=== PATIENT | female | born 1985 | race African-American/Black ===

== ENCOUNTER 2016-08-24 10:27 | Emergency (ER) | payer MEDICAID ==
[~2016-08-24] VITALS: Ht 165.1 cm; Wt 139.0 kg
[2016-08-24 10:38] VITALS: BP 147/99
== END 2016-08-24 13:27 | disposition home or self-care (01) ==
LOC: ER 12:47
DX: M54.31 Sciatica, right side (principal); R20.0 Anesthesia of skin; Z90.49 Acquired absence of other specified parts of digestive tract
CPT/HCPCS: 99281

== ENCOUNTER 2016-10-06 20:07 | Emergency (ER) | payer SELFPAY ==
[~2016-10-06] VITALS: Ht 165.1 cm; Wt 131.0 kg
[2016-10-06] MEDS ORDERED: IBUPROFEN 800MG TABLET PO ONE (22:15)
[2016-10-06 22:30] LABS: BASOPHILS % 0.8 % (0.0-2.0); EOSINOPHILS % 0.5 % (0.0-5.0); HEMATOCRIT. 35.9 % (36.0-48.0); HEMOGLOBIN. 11.3 g/dL (12.0-16.0); MEAN CORPUSCULAR VOLUME 72.7 fL (81.0-99.0); MEAN PLATELET VOLUME 8.7 fl (7.4-10.4); MONOCYTES % 8.4 % (2.0-8.0); NEUTROPHILS % 68.3 % (40.0-76.0); PLATELET 358 x1000/uL (130-400); RED BLOOD CELL COUNT 4.93 mill/uL (4.2-5.4); RED CELL DISTRIBUTION WIDTH 15.7 % (11.6-14.6)
[2016-10-06 22:32] LABS: CHLORIDE 105 mEq/L (98-107)
[2016-10-06 22:37] LABS: CARBON DIOXIDE 28 mEq/L (21-32)
[2016-10-06 22:44] LABS: TROPONIN I < 0.02 ng/mL (0.00-0.04)
[2016-10-07 00:56] VITALS: BP 127/68
== END 2016-10-07 00:57 | disposition home or self-care (01) ==
LOC: ER 20:07
DX: M94.0 Chondrocostal junction syndrome [Tietze] (principal); F41.9 Anxiety disorder, unspecified; K21.9 Gastro-esophageal reflux disease without esophagitis; Z90.49 Acquired absence of other specified parts of digestive tract
CPT/HCPCS: 36415; 71010; 80053; 81025; 84484; 85025; 93005; 99285

== ENCOUNTER 2017-01-29 13:17 | Emergency (ER) | payer MEDICAID ==
[~2017-01-29] VITALS: Ht 165.1 cm; Wt 134.0 kg
[2017-01-29] MEDS ORDERED: VISCOUS LIDOCAINE 2% 15 ML UDC PO STA (18:33)
[2017-01-29] MEDS ORDERED: ONDANSETRON 4MG ODT PO STA (18:33)
[2017-01-29] MEDS ORDERED: MAGNESIUM/ALUMINUM HYDROXIDE/SIMETHICONE 30ML UDC PO STA (18:33)
[2017-01-29 19:04] LABS: BASOPHILS % 1.2 % (0.0-2.0); EOSINOPHILS % 1.8 % (0.0-5.0); HEMOGLOBIN. 10.4 g/dL (12.0-16.0); LYMPHOCYTES % 30.3 % (20.0-50.0); MEAN CORPUSCULAR HEMOGLOBIN 23.2 pg (28.0-32.0); MEAN CORPUSCULAR VOLUME 73.3 fL (81.0-99.0); MEAN PLATELET VOLUME 8.5 fl (7.4-10.4); MONOCYTES % 9.3 % (2.0-8.0); NEUTROPHILS % 57.4 % (40.0-76.0); PLATELET 350 x1000/uL (130-400); RED BLOOD CELL COUNT 4.51 mill/uL (4.2-5.4); RED CELL DISTRIBUTION WIDTH 15.8 % (11.6-14.6)
[2017-01-29 19:11] LABS: CHLORIDE 105 mEq/L (98-107)
[2017-01-29 19:14] LABS: CARBON DIOXIDE 28 mEq/L (21-32)
[2017-01-29 21:59] VITALS: BP 133/70
== END 2017-01-29 22:01 | disposition home or self-care (01) ==
LOC: ER 14:18
DX: K21.0 Gastro-esophageal reflux disease with esophagitis (principal); K29.70 Gastritis, unspecified, without bleeding; F41.9 Anxiety disorder, unspecified; Z90.49 Acquired absence of other specified parts of digestive tract
CPT/HCPCS: 36415; 80053; 81025; 83690; 85025; 99284; Q0162

== ENCOUNTER 2017-03-14 13:02 | Inpatient (IN) | payer MEDICAID ==
[~2017-03-14] VITALS: Ht 165.1 cm; Wt 136.1 kg
[2017-03-14] MEDS ORDERED: ASPIRIN 81MG TABLET PO ONE (13:45)
[2017-03-14 14:00] LABS: BASOPHILS % 0.8 % (0.0-2.0); EOSINOPHILS % 0.7 % (0.0-5.0); HEMATOCRIT. 34.8 % (36.0-48.0); HEMOGLOBIN. 11.1 g/dL (12.0-16.0); LYMPHOCYTES % 21.1 % (20.0-50.0); MEAN CORPUSCULAR HEMOGLOBIN 23.1 pg (28.0-32.0); MEAN CORPUSCULAR VOLUME 72.4 fL (81.0-99.0); MEAN PLATELET VOLUME 8.5 fl (7.4-10.4); NEUTROPHILS % 69.4 % (40.0-76.0); PLATELET 351 x1000/uL (130-400)
[2017-03-14 14:09] LABS: PARTIAL THROMBOPLASTIN TIME 26.6 sec (23.4-31.0); PROTHROMBIN TIME 10.8 sec (9.4-11.6)
[2017-03-14 14:16] LABS: CARBON DIOXIDE 26 mEq/L (21-32); CHLORIDE 104 mEq/L (98-107); TROPONIN I < 0.02 ng/mL (0.00-0.04)
[2017-03-14 14:28] LABS: CLARITY URINE CLEAR (CLEAR); COLOR URINE YELLOW (YELLOW); GLUCOSE URINE NEGATIVE (NEGATIVE); KETONES URINE NEGATIVE (NEGATIVE); LEUKOCYTE ESTERASE URINE NEGATIVE (NEGATIVE); NITRITE URINE NEGATIVE (NEGATIVE); OCCULT BLOOD URINE 2+ (NEGATIVE); PH URINE 5.5 (4.5-8.0); PROTEIN URINE NEGATIVE (NEGATIVE); SPECIFIC GRAVITY URINE 1.028 (1.005-1.030); UROBILINOGEN URINE 0.2 E.U./dL (0.2-1.0)
[2017-03-14 14:58] LABS: *AMPHETAMINES SCREEN URINE NEGATIVE (NEGATIVE); *BARBITURATES SCREEN URINE NEGATIVE (NEGATIVE); *BENZODIAZEPINES SCREEN URINE NEGATIVE (NEGATIVE); *COCAINE SCREEN URINE NEGATIVE (NEGATIVE); CANNABINOID URINE SCREEN NEGATIVE (NEGATIVE); METHADONE URINE SCREEN NEGATIVE (NEGATIVE); OPIATES URINE SCREEN NEGATIVE (NEGATIVE); PHENCYCLIDINE URINE SCREEN NEGATIVE (NEGATIVE)
[2017-03-14 22:33] VITALS: BP 132/66
[2017-03-14] MEDS ORDERED: IPRATROPIUM/ALBUTEROL 0.5-3(2.5)MG/3ML NEB INH PRN (22:45)
[2017-03-14] MEDS ORDERED: CLONIDINE 0.1MG TABLET PO PRN (22:45)
[2017-03-14] MEDS ORDERED: DOCUSATE SODIUM 100MG CAPSULE PO PRN (22:45)
[2017-03-14] MEDS ORDERED: MAGNESIUM/ALUMINUM HYDROXIDE/SIMETHICONE 30ML UDC PO PRN (22:45)
[2017-03-14] MEDS ORDERED: ONDANSETRON HCL 4MG/2ML VIAL IV PRN (22:45)
[2017-03-14] MEDS ORDERED: ENOXAPARIN 40MG/0.4ML SYR SUBCUT SCH (22:45)
[2017-03-14] MEDS ORDERED: HYDROCODONE/ACETAMINOPHEN 5/325MG TABLET PO PRN (22:45)
[2017-03-14] MEDS ORDERED: FERR325T6 PO (23:10)
[2017-03-14] MEDS: ACETAMINOPHEN 325MG TABLET PO PRN (23:31)
[2017-03-15 00:22] LABS: CARBON DIOXIDE 26 mEq/L (21-32); CHLORIDE 106 mEq/L (98-107)
[2017-03-15 04:00] VITALS: BP 105/56
[2017-03-15] MEDS: ACETAMINOPHEN 325MG TABLET PO PRN (06:50)
[2017-03-15 07:55] LABS: CREATINE KINASE 155 IU/L (26-192); CREATINE KINASE MB FRACTION 1.4 ng/mL (0.5-3.6); HDL CHOLESTEROL 37 mg/dL (40-59); LDL CHOLESTEROL 96 mg/dL (5-100); TROPONIN I < 0.02 ng/mL (0.00-0.04)
[2017-03-15 08:00] VITALS: BP 107/52
[2017-03-15] MEDS: OMEPRAZOLE 20MG CAPSULE EXTENDED RELEASE PO SCH (08:07)
[2017-03-15] MEDS: ENOXAPARIN 40MG/0.4ML SYR SUBCUT SCH ×2 (08:08→20:06)
[2017-03-15] MEDS: ASPIRIN 81MG EC TABLET PO SCH (08:08)
[2017-03-15] MEDS ORDERED: POTASSIUM CHLORIDE 20MEQ TABLET SR PO NR (11:45)
[2017-03-15 12:00] VITALS: BP 99/50
[2017-03-15 14:58] LABS: UCG SCREEN NEGATIVE
[2017-03-15 16:00] VITALS: BP 111/52
[2017-03-15 17:26] LABS: CREATINE KINASE 148 IU/L (26-192); TOTAL IRON BINDING CAPACITY 342 ug/dL (250-450); TROPONIN I < 0.02 ng/mL (0.00-0.04)
[2017-03-15 20:00] VITALS: BP 120/80
[2017-03-16] VITALS: BP 105/46
[2017-03-16 04:00] VITALS: BP 107/68
[2017-03-16 08:00] VITALS: BP 107/69
[2017-03-16] MEDS: ENOXAPARIN 40MG/0.4ML SYR SUBCUT SCH ×2 (08:46→21:00)
[2017-03-16] MEDS: ASPIRIN 81MG EC TABLET PO SCH (08:46)
[2017-03-16] MEDS: OMEPRAZOLE 20MG CAPSULE EXTENDED RELEASE PO SCH (08:46)
[2017-03-16] MEDS ORDERED: POTASSIUM CHLORIDE 20MEQ TABLET SR PO SCH (11:15)
[2017-03-16 12:00] VITALS: BP 105/62
[2017-03-16 16:00] VITALS: BP 112/52
[2017-03-16 20:00] VITALS: BP 127/63
[2017-03-17] VITALS: BP 112/68
[2017-03-17 04:00] VITALS: BP 111/63
[2017-03-17 06:06] LABS: BASOPHILS % 1.2 % (0.0-2.0); EOSINOPHILS % 1.6 % (0.0-5.0); HEMOGLOBIN. 10.8 g/dL (12.0-16.0); LYMPHOCYTES % 24.1 % (20.0-50.0); MEAN CORPUSCULAR VOLUME 72.2 fL (81.0-99.0); MEAN PLATELET VOLUME 9.4 fl (7.4-10.4); MONOCYTES % 9.5 % (2.0-8.0); NEUTROPHILS % 63.6 % (40.0-76.0); PLATELET 300 x1000/uL (130-400); RED BLOOD CELL COUNT 4.71 mill/uL (4.2-5.4); RED CELL DISTRIBUTION WIDTH 16.5 % (11.6-14.6)
[2017-03-17 06:26] LABS: CHLORIDE 104 mEq/L (98-107)
[2017-03-17 06:44] LABS: CARBON DIOXIDE 26 mEq/L (21-32)
[2017-03-17 08:00] VITALS: BP 127/64
[2017-03-17] MEDS: ASPIRIN 81MG EC TABLET PO SCH (08:17)
[2017-03-17] MEDS: OMEPRAZOLE 20MG CAPSULE EXTENDED RELEASE PO SCH (08:17)
[2017-03-17] MEDS: ENOXAPARIN 40MG/0.4ML SYR SUBCUT SCH ×2 (08:18→20:11)
[2017-03-17 12:00] VITALS: BP 127/74
[2017-03-17 16:00] VITALS: BP 122/63
[2017-03-17] MEDS ORDERED: REGADENOSON 0.4 MG/5 ML IV NR (16:00)
[2017-03-17 20:00] VITALS: BP 112/59
[2017-03-17] MEDS: LORAZEPAM 0.5MG TABLET PO PRN (20:11)
[2017-03-18] VITALS: BP 100/56
[2017-03-18 04:00] VITALS: BP 109/57
[2017-03-18 07:25] LABS: BASOPHILS % 0.6 % (0.0-2.0); EOSINOPHILS % 0.6 % (0.0-5.0); HEMATOCRIT. 34.4 % (36.0-48.0); HEMOGLOBIN. 11.1 g/dL (12.0-16.0); LYMPHOCYTES % 20.2 % (20.0-50.0); MEAN CORPUSCULAR HEMOGLOBIN 23.2 pg (28.0-32.0); MEAN PLATELET VOLUME 9.4 fl (7.4-10.4); MONOCYTES % 8.4 % (2.0-8.0); NEUTROPHILS % 70.2 % (40.0-76.0); PLATELET 337 x1000/uL (130-400); RED BLOOD CELL COUNT 4.78 mill/uL (4.2-5.4); RED CELL DISTRIBUTION WIDTH 16.5 % (11.6-14.6)
[2017-03-18 08:00] VITALS: BP 132/77
[2017-03-18] MEDS: ASPIRIN 81MG EC TABLET PO SCH (08:06)
[2017-03-18] MEDS: OMEPRAZOLE 20MG CAPSULE EXTENDED RELEASE PO SCH (08:06)
[2017-03-18] MEDS: ENOXAPARIN 40MG/0.4ML SYR SUBCUT SCH (08:07)
[2017-03-18] MEDS ORDERED: REGADENOSON 0.4 MG/5 ML IV ONE (08:39)
[2017-03-18 08:43] LABS: CARBON DIOXIDE 27 mEq/L (21-32); CHLORIDE 103 mEq/L (98-107)
[2017-03-18] MEDS: LORAZEPAM 0.5MG TABLET PO PRN (10:24)
[2017-03-18 11:33] VITALS: BP 117/59
[2017-03-18] MEDS ORDERED: ALPR0.25 PO (12:07)
[2017-03-18] MEDS ORDERED: OMEP20CA10 PO (12:07)
[2017-03-18 13:17] VITALS: BP 117/59
== END 2017-03-18 15:20 | disposition home or self-care (01) | DRG 756 ==
LOC: ER 13:20 → 7WST 20:48 → EDBEDREQ 21:02 → ENRESERV 21:07
PROVIDERS: ADMIT Internal Medicine; ATTEND Internal Medicine
DX: F41.9 Anxiety disorder, unspecified (principal); R65.10 Systemic inflammatory response syndrome (SIRS) of non-infectious origin without acute organ dysfunction; Z68.42 Body mass index [BMI] 45.0-49.9, adult; I10 Essential (primary) hypertension; K21.9 Gastro-esophageal reflux disease without esophagitis; E66.9 Obesity, unspecified; D64.9 Anemia, unspecified; D72.829 Elevated white blood cell count, unspecified; K82.9 Disease of gallbladder, unspecified; N92.0 Excessive and frequent menstruation with regular cycle; Z82.49 Family history of ischemic heart disease and other diseases of the circulatory system; Z90.49 Acquired absence of other specified parts of digestive tract; Z79.899 Other long term (current) drug therapy; R00.1 Bradycardia, unspecified
CPT/HCPCS: 36415; 71010; 78452; 80048; 80053; 80061; 80305; 81001; 81025; 82550; 82553; 83540; 83550; 83690; 83735; 83880; 84443; 84484; 85025; 85379; 85610; 85730; 87086; 93005; 93306; 93970; 99285; A9500; J1650; J2405; J2785

== ENCOUNTER 2017-05-19 05:56 | Emergency (ER) | payer MEDICAID ==
[~2017-05-19] VITALS: Ht 172.7 cm; Wt 105.0 kg
[~2017-05-19 05:56] MED LIST: ALPR0.25 PO; FERR325T6 PO; OMEP20CA10 PO
[2017-05-19] MEDS ORDERED: ACETAMINOPHEN 325MG TABLET PO STA (11:38)
[2017-05-19 11:51] LABS: BASOPHILS % 0.9 % (0.0-2.0); EOSINOPHILS % 1.4 % (0.0-5.0); HEMATOCRIT. 34.6 % (36.0-48.0); HEMOGLOBIN. 10.9 g/dL (12.0-16.0); LYMPHOCYTES % 34.1 % (20.0-50.0); MEAN CORPUSCULAR HEMOGLOBIN 22.9 pg (28.0-32.0); MEAN CORPUSCULAR VOLUME 72.6 fL (81.0-99.0); MEAN PLATELET VOLUME 8.7 fl (7.4-10.4); MONOCYTES % 8.5 % (2.0-8.0); NEUTROPHILS % 55.1 % (40.0-76.0); PLATELET 358 x1000/uL (130-400); RED BLOOD CELL COUNT 4.77 mill/uL (4.2-5.4); RED CELL DISTRIBUTION WIDTH 18.5 % (11.6-14.6)
[2017-05-19 12:05] LABS: CARBON DIOXIDE 32 mEq/L (21-32); CHLORIDE 104 mEq/L (98-107)
[2017-05-19 12:32] LABS: CLARITY URINE CLEAR (CLEAR); COLOR URINE YELLOW (YELLOW); KETONES URINE NEGATIVE (NEGATIVE); LEUKOCYTE ESTERASE URINE NEGATIVE (NEGATIVE); NITRITE URINE NEGATIVE (NEGATIVE); OCCULT BLOOD URINE NEGATIVE (NEGATIVE); PROTEIN URINE NEGATIVE (NEGATIVE); SPECIFIC GRAVITY URINE 1.023 (1.005-1.030); UROBILINOGEN URINE 0.2 E.U./dL (0.2-1.0)
[2017-05-19 13:27] VITALS: BP 117/54
== END 2017-05-19 13:36 | disposition home or self-care (01) ==
LOC: ER 07:10
DX: M25.512 Pain in left shoulder (principal); R20.2 Paresthesia of skin
CPT/HCPCS: 36415; 71045; 80053; 81003; 81025; 85025; 93005; 99285

== ENCOUNTER 2017-08-06 08:16 | Emergency (ER) | payer MEDICAID, OTHER ==
[~2017-08-06] VITALS: Ht 165.1 cm; Wt 131.0 kg
[2017-08-06] MEDS ORDERED: ACETAMINOPHEN 325MG TABLET PO ONE (09:30)
[2017-08-06] MEDS ORDERED: ONDANSETRON 4MG ODT PO ONE (09:30)
[2017-08-06 09:54] LABS: BASOPHILS % 0.9 % (0.0-2.0); EOSINOPHILS % 0.5 % (0.0-5.0); HEMOGLOBIN. 12.3 g/dL (12.0-16.0); LYMPHOCYTES % 17.4 % (20.0-50.0); MEAN CORPUSCULAR HEMOGLOBIN 24.8 pg (28.0-32.0); MEAN CORPUSCULAR VOLUME 76.7 fL (81.0-99.0); MEAN PLATELET VOLUME 8.6 fl (7.4-10.4); NEUTROPHILS % 75.2 % (40.0-76.0); PLATELET 360 x1000/uL (130-400); RED BLOOD CELL COUNT 4.96 mill/uL (4.2-5.4); RED CELL DISTRIBUTION WIDTH 16.4 % (11.6-14.6)
[2017-08-06 10:00] LABS: CHLORIDE 104 mEq/L (98-107)
[2017-08-06 10:03] LABS: CLARITY URINE CLOUDY (CLEAR); COLOR URINE YELLOW (YELLOW); KETONES URINE NEGATIVE (NEGATIVE); LEUKOCYTE ESTERASE URINE 2+ (NEGATIVE); NITRITE URINE NEGATIVE (NEGATIVE); OCCULT BLOOD URINE NEGATIVE (NEGATIVE); PROTEIN URINE NEGATIVE (NEGATIVE); SPECIFIC GRAVITY URINE 1.019 (1.005-1.030); UROBILINOGEN URINE 0.2 E.U./dL (0.2-1.0)
[2017-08-06] MEDS ORDERED: MECLIZINE 12.5MG TABLET PO ONE (10:45)
[2017-08-06] MEDS ORDERED: ONDANSETRON HCL 4MG/2ML VIAL IV ONE (11:15)
[2017-08-06 12:01] VITALS: BP 119/58
== END 2017-08-06 12:11 | disposition home or self-care (01) ==
LOC: ER 08:52
DX: R42 Dizziness and giddiness (principal); R51 Headache; N39.0 Urinary tract infection, site not specified; I10 Essential (primary) hypertension; D50.9 Iron deficiency anemia, unspecified; Z87.891 Personal history of nicotine dependence; Z91.19 Patient's noncompliance with other medical treatment and regimen; Z90.49 Acquired absence of other specified parts of digestive tract
CPT/HCPCS: 36415; 80048; 81003; 81025; 85025; 87086; 96374; 99284; J2405; Q0162; J8597

== ENCOUNTER 2017-09-08 15:09 | Emergency (ER) | payer SELFPAY ==
[2017-09-08 15:16] VITALS: BP 125/54
== END 2017-09-08 22:00 | disposition left against medical advice (07) ==
LOC: ER 15:57
DX: R07.89 Other chest pain (principal)
CPT/HCPCS: 93005; 99283

== ENCOUNTER 2018-05-12 06:22 | Emergency (ER) | payer MEDICAID, OTHER ==
[~2018-05-12] VITALS: Ht 165.1 cm; Wt 132.1 kg
[2018-05-12 08:19] LABS: BASOPHILS % 0.4 % (0.0-2.0); EOSINOPHILS % 0.4 % (0.0-5.0); HEMATOCRIT. 31.9 % (36.0-48.0); HEMOGLOBIN. 10.1 g/dL (12.0-16.0); LYMPHOCYTES % 18.6 % (20.0-50.0); MEAN CORPUSCULAR HEMOGLOBIN 22.4 pg (28.0-32.0); MEAN CORPUSCULAR VOLUME 70.7 fL (81.0-99.0); MEAN PLATELET VOLUME 9.1 fl (7.4-10.4); MONOCYTES % 7.3 % (2.0-8.0); NEUTROPHILS % 73.3 % (40.0-76.0); PLATELET 349 x1000/uL (130-400); RED BLOOD CELL COUNT 4.51 mill/uL (4.2-5.4); RED CELL DISTRIBUTION WIDTH 16.9 % (11.6-14.6)
[2018-05-12 08:24] LABS: CHLORIDE 106 mEq/L (98-107)
[2018-05-12 08:28] LABS: ETHANOL BLOOD < 10 mg/dL
[2018-05-12] MEDS ORDERED: ALBUTEROL (0.083%) 2.5MG/3ML NEB HHN NR (08:45)
[2018-05-12 09:23] LABS: *BARBITURATES SCREEN URINE NEGATIVE (NEGATIVE)
[2018-05-12 09:24] LABS: *AMPHETAMINES SCREEN URINE NEGATIVE (NEGATIVE); *BENZODIAZEPINES SCREEN URINE NEGATIVE (NEGATIVE); *COCAINE SCREEN URINE NEGATIVE (NEGATIVE); METHADONE URINE SCREEN NEGATIVE (NEGATIVE); OPIATES URINE SCREEN NEGATIVE (NEGATIVE); PHENCYCLIDINE URINE SCREEN NEGATIVE (NEGATIVE)
[2018-05-12 09:25] LABS: CANNABINOID URINE SCREEN NEGATIVE (NEGATIVE)
[2018-05-12 10:11] VITALS: BP 128/72
== END 2018-05-12 10:23 | disposition home or self-care (01) ==
LOC: ER 07:21
DX: R07.89 Other chest pain (principal); R06.00 Dyspnea, unspecified; E11.9 Type 2 diabetes mellitus without complications; K21.9 Gastro-esophageal reflux disease without esophagitis; Z98.890 Other specified postprocedural states; Z87.891 Personal history of nicotine dependence
CPT/HCPCS: 36415; 71045; 80053; 80305; 81025; 83690; 83880; 84484; 85025; 85379; 93005; 94640; 99284; G0482; J7611